=== PATIENT | female | born 1960 | race Caucasian/White ===

== ENCOUNTER → 2017-10-07 | Outpatient (CLI) | payer BC ==
[~2017-10-07] MED LIST: IOHEXOL 300 MG/ML 75 ML VIAL. IV ONE
--- NOTE | 2017-10-07 09:38 | RAD ---
Chest CT with contrast Clinical indications: Abnormal chest x-ray. Shortness of breath for years with increasing difficulty in breathing. Tightness in chest. TECHNIQUE: After IV infusion of 75 cc of Omnipaque 300, helical CT scanning of the chest was performed. PQRS compliance Statement One or more of the following individualized dose reduction techniques were utilized for this study: 1. Automated exposure control 2. Adjustment of the mA and/or kV according to patient size 3. Use of iterative reconstruction technique COMPARISON: None available. FINDINGS: No enlarged thoracic lymphadenopathy is evident. No focal aneurysmal dilatation of the thoracic aorta is seen. No intimal flap or dissection is seen. The heart size is normal and no pericardial effusion is seen. No pleural effusion or pneumothorax is seen. No lung mass or consolidative lung infiltrate is seen. The proximal bronchial tree is patent. No osteolytic process is seen. No adrenal mass is evident. IMPRESSION: No significant abnormality. Electronically signed by: Gennaro Murry MD (10/07/2017 9:34 AM) [id number]
== END | disposition home or self-care (01) ==
LOC: CT 07:57
PROVIDERS: ATTEND Nurse Practitioner Family
DX: R06.09 Other forms of dyspnea (principal); R07.89 Other chest pain; R93.8 Abnormal findings on diagnostic imaging of other specified body structures
CPT/HCPCS: 71260; Q9967

== ENCOUNTER → 2021-03-07 | Outpatient (CLI) | payer BC ==
--- NOTE | 2021-03-15 16:45 | RAD ---
Bilateral digital screening 2-D and 3-D (tomosynthesis) mammogram: Reason for examination: Routine screening. Comparison is made to previous mammogram dated 11/03/2018. Bilateral mammograms in CC and oblique projections were obtained with 2-D imaging and 3-D tomosynthes is imaging and reviewed on the workstation. Interpretation was made with the benefit of CAD. Findings: Breast density: Category C. The breasts are heterogeneously dense, which may obscure small masses. There is a focal asymmetry which has a oval shape in the outer left breast that measures 1.3 cm. This is in the 3:00 position about 4.5 cm from the nipple. No other evidence of breast mass is seen. Ther e are no malignant appearing calcifications or architectural distortion. Impression: There is a probable mass in the outer left breast, 3:00, 4.5 cm from the nipple. Further evaluation w ith targeted left breast ultrasound is recommended. ASSESSMENT: BI-RADS 0. Incomplete. Recommendations: Targeted left breast ultrasound. The patient will be on contacted with results and notified to schedule for additional imaging. This p atient's information has been entered into a reminder system for the patient to be notified with the results of her examination and a target date for the next mammogram. Your patient's mammogram demonstrates that she has dense breast tissue (breast density category C or D), which could hide abnormalities, and if she has other risk factors for breast cancer that have bee n identified, she might benefit from supplemental screening tests that may be suggested by you as her ordering physician. Dense breast tissue, in and of itself, is a relatively common condition. Therefo re, this information is not provided to cause undue concern, but rather to raise your awareness and t o promote discussion with your patient regarding the presence of other risk factors, in addition to d ense breast tissue. Electronically signed by: Tana Collins MD (03/15/2021 4:42 PM) [id number]
== END ==
LOC: MAMMO 11:01
PROVIDERS: ATTEND Family Medicine
DX: Z12.31 Encounter for screening mammogram for malignant neoplasm of breast (principal)
CPT/HCPCS: 77063; 77067

== ENCOUNTER → 2021-03-26 | Outpatient (CLI) | payer BC ==
--- NOTE | 2021-03-26 13:57 | RAD ---
US BREAST LT History:Reason: CALL BACK FROM MAMM 03-07-21; LT BREAST MASS / Spl. Instructions: / History: Comparison: March 07, 2021 mammogram and November 03, 2018 mammogram. Technique: Sonographic examination of the left breast was performed and multiple static images were obtained. Findings: Hypoechoic solid mass within the left breast measures 1.2 x 0.9 x 0.4 cm. The mass is 3:00 position 5 cm from the nipple corresponding with mammographic finding. There are angular margins and mild poste rior shadowing. The mass is not well identified in 2019 mammogram. Impression: 1. Hypoechoic solid left breast mass with angular margins. Recommend ultrasound-guided biopsy to fur ther assess. BI-RADS Category 4: Suspicious. Results discussed with the patient by photonics engineering technologist. Results also discussed with Dr. Murry at 1:53 PM on 03/26/2021. Electronically signed by: Garfield Palacios DO (03/26/2021 1:55 PM) [id number]
== END ==
LOC: US 12:50
PROVIDERS: ATTEND Family Medicine
DX: N63.20 Unspecified lump in the left breast, unspecified quadrant (principal)
CPT/HCPCS: 76641